=== PATIENT | female | born 1950 | race Caucasian/White ===

== ENCOUNTER 2018-05-30 12:48 | Emergency (ER) | payer OTHER ==
[2018-05-30 12:53] VITALS: BP 144/85; PULSE 85; TEMP 99.6; BMI 27.9
--- NOTE | 2018-05-30 13:27 | PDOC ---
History of Present Illness - General Chief Complaint: Respiratory Stated Complaint: CHEST PAIN Time Seen by Provider: 05/30/18 13:10 History Source: Patient Exam Limitations: No Limitations - History of Present Illness Initial Comments: 05/30/18 13:27 68 YOF with h/o NIDDM, prior HCV (tx with Harvoni with viral clearance at [facility]) , long-time smoker, hypothyroidism, and HTN who p/w dry cough for the past 2 days which has been worsening and associated with SOB, hot/cold flashes and chills, chest and head pressure, and lightheadedness. She tried 324 mg of ASA at home last night for the symptoms but this did not help. She did get a flu vaccination this year and denies any sick contacts. Never been sick like this before. Never had breathing problems or needed breathing treatments. She called her PCP Thuy Baird before coming in and he is aware she is here. Past History - Past Medical History Allergies/Adverse Reactions: Allergies Allergy/AdvReac Type Severity Reaction Status Date / Time No Known Allergies Allergy Verified 05/30/18 12:53 Home Medications: Ambulatory Orders Levothyroxine [Synthroid -] 125 mcg PO DAILY 10/30/11 Methadone [Dolophine -] 10 mg PO PRN PRN 10/30/11 Amlodipine Besylate/Benazepril [Lotrel 10-40 mg Capsule] 1 each PO DAILY Ascorbic Acid [Vitamin C] 250 mg PO DAILY 07/28/13 Cholecalciferol (Vitamin D3) [Vitamin D3] 400 unit PO DAILY 07/28/13 Clonazepam 1 mg PO PRN PRN 07/28/13 Esomeprazole Mag Trihydrate [Nexium] 40 mg PO DAILY 07/28/13 Glyburide 5 mg PO BID 07/28/13 Krill Oil/Eolia-3/Dha/Epa [Eolia-3 Krill Oil Softgel] 1 each PO DAILY 07/28/13 Vitamin E 400 unit PO DAILY 07/28/13 Polyethylene Glycol 3350 [Miralax 119 gm Btl -] 17 gm PO DAILY PRN #1 bottle Albuterol Sulfate Inhaler - [Ventolin HFA Inhaler -] 1 - 2 inh PO QID #1 inhaler 05/30/18 Oseltamivir Phosphate [Tamiflu] 75 mg PO BID #9 capsule 05/30/18 Anemia: No Asthma: No Cancer: No Cardiac Disorders: No CVA: No COPD: No CHF: No Dementia: No Diabetes: Yes (NIDDM) GI Disorders: Yes (GASTROPARESIS SYNDROME) Disorders: No HTN: Yes Hypercholesterolemia: No Liver Disease: Yes (HEP C, CHRONIC LIVER DISEASE) Seizures: No Thyroid Disease: Yes - Surgical History Abdominal Surgery: No Appendectomy: No Cardiac Surgery: No Cholecystectomy: No Lung Surgery: No Neurologic Surgery: No Orthopedic Surgery: No - Suicide/Smoking/Psychosocial Hx Smoking Status: No Smoking History: Never smoked Have you smoked in the past 12 months: Yes Number of Cigarettes Smoked Daily: 3 'Breaking Loose' booklet given: 07/29/13 Hx Alcohol Use: No Drug/Substance Use Hx: Yes (IN THE PAST) Substance Use Type: Alcohol, Opiates Hx Substance Use Treatment: No Review of Systems - Review of Systems Able to Perform ROS?: Yes Comments:: 05/30/18 13:36 GEN: subjective fever, chills, malaise, no generalized weakness, or weight change HEENT: no ear pain, sore throat, vision change, or eye pain CV: chest pain, lightheadedness, no palpitations, syncope, or edema RESP: cough, SOB, no wheezing GI: no abdominal pain, nausea, vomiting, diarrhea, constipation, or white/black/ bloody stool : no dysuria, hematuria, incontinence, retention, bleeding, or discharge MSK: no neck/back pain, muscle weakness/pain, or joint swelling/pain NEURO: headache, no seizure, vertigo, numbness, tingling, or focal weakness PSYCH: no substance use, no behavior change SKIN: no jaundice, no rash ROS otherwise negative except as noted in HPI *Physical Exam - Vital Signs Last Vital Signs Temp Pulse Resp BP Pulse Ox 99.6 F 85 18 144/85 98 05/30/18 12:51 05/30/18 12:51 05/30/18 12:51 05/30/18 12:51 05/30/18 12:51 - Physical Exam Comments: 05/30/18 13:42 GENERAL: a bit uncomfortable but nontoxic-appearing, A/Ox4, answers questions appropriately, a bit anxious HEENT: PERRLA, EOMI, moist mucous membranes, minimal posterior pharyngeal erythema without tonsillar swelling or exudates NECK/BACK: no midline ttp, no spinal stepoff or deformity, no hematoma, full ROM , neck supple CARDIOVASCULAR: regular rate/rhythm, normal S1S2, no MGR, strong peripheral pulses, capillary refill <2 seconds, extremities wwp, no edema LUNGS/RESPIRATORY: no respiratory distress, CTAB, no crackles/wheezes/rhonchi GI/ABDOMEN: symmetric [id number], normoactive BS, soft, no ttp, no midline pulsatile masses : no CVA tenderness EXTREMITIES: no muscle atrophy, no acute deformity, no edema SKIN: warm and dry, no pallor, no jaundice, no rash, no bruising, no skin breakdown, no cuts, no lesions NEUROLOGICAL: GCS 15, CN II-XII grossly intact, 5/5 strength proximally and distally, no facial droop, normal gait Moderate Sedation - Procedure Monitoring Vital Signs: Procedure Monitoring Vital Signs Temperature 99.6 F 05/30/18 12:51 Pulse Rate 85 05/30/18 12:51 Respiratory Rate 18 05/30/18 12:51 Blood Pressure 144/85 05/30/18 12:51 O2 Sat by Pulse Oximetry (%) 98 05/30/18 12:51 Heart Score/ECG Review - History History: Slightly suspicious - Electrocardiogram EKG: Normal - Age Age: >/= 65 - Risk Factors Risk Factors Heart Score: Yes Hx Hypertension, Yes Hx Diabetes, Yes Smoking History Based on the list above the patient has:: >/=3 risk factors or Hx atherosclerotic disease - Troponin Troponin: </= normal limit - Score Heart Score - Total: 4 #1 05/30/18 13:25 NSR, rate 75, leftward axis, isolated TWI in III, otherwise no ischemic ST-T changes ED Treatment Course - LABORATORY CBC & Chemistry Diagram: 05/30/18 13:34 05/30/18 13:34 Medical Decision Making - Medical Decision Making 05/30/18 13:33 Pt p/w SOB, cough, chest discomfort, and fever. Initial Vital Signs Temp Pulse Resp BP Pulse Ox 99.6 F 85 18 144/85 98 05/30/18 12:51 05/30/18 12:51 05/30/18 12:51 05/30/18 12:51 05/30/18 12:51 Exam: As noted in Physical Exam section. DDX IBNLT: Most likely URI, influenza, PNA, bronchitis, or COPD; less likely ACS , asthma, CHF, other lung disease, laryngitis, tracheitis, sinus infection, etc. W/U ordered: CXR EKG CBCD CMP Troponin TX ordered: Reglan, Benadryl, IVF EKG: Reviewed; results as noted in ECG Review section. Laboratory Tests 05/30/18 05/30/18 05/30/18 13:30 13:34 13:34 WBC 4.0 RBC 3.79 Hgb 12.5 Hct 35.6 MCV 93.8 MCH 32.9 MCHC 35.1 RDW 13.7 Plt Count 102 L D MPV 9.1 Absolute Neuts (auto) 3.2 Neutrophils % 80.6 D Lymphocytes % 5.6 L D Monocytes % 13.3 H Eosinophils % 0.0 D Basophils % 0.5 Nucleated RBC % 0 Sodium 137 Potassium 3.7 Chloride 100 Carbon Dioxide 31 Anion Gap 7 L BUN 11 Creatinine 0.7 Creat Clearance w eGFR > 60 Random Glucose 130 H Calcium 8.6 Total Bilirubin 0.4 AST 24 ALT 26 Alkaline Phosphatase 80 Troponin I < 0.02 Total Protein 7.3 Albumin 3.5 Influenza A (Rapid) Positive A Influenza B (Rapid) Negative HEART score is 4, but the patient's clinical picture is much more consistent with URI. She has had this chest pressure for more than 24 hours and troponin is negative. She states the pain is worse with coughing. Reassessment: Patient states feeling improved. CXR: nothing acute DISCHARGE Patient is influenza positive and within Tamiflu tx window. First dose given here in the ED and E-Rx sent to her pharmacy for remaining course. E-Rx also sent for Albuterol MDI as patient is long-time smoker, likely COPD, got relief in ED with DuoNeb. The Pt has gotten significant relief of symptoms while in the ED. They are appropriate for discharge with close outpatient follow up. The Pt is comfortable with this plan and will follow up with their primary care provider in 1-3 days. Specific return precautions are discussed and they will come back to the ER if necessary. *DC/Admit/Observation/Transfer Diagnosis at time of Disposition: Influenza A - Discharge Dispostion Disposition: HOME Condition at time of disposition: Stable Decision to Admit order: No - Prescriptions Prescriptions: Albuterol Sulfate Inhaler - [Ventolin HFA Inhaler -] 1 - 2 inh PO QID #1 inhaler Oseltamivir Phosphate [Tamiflu] 75 mg PO BID #9 capsule - Referrals Referrals: Thuy Baird MD [Primary Care Provider] - - Patient Instructions Printed Discharge Instructions: DI for Influenza -- Adult Additional Instructions: You were seen in the ER for influenza. Your blood laboratories, electrocardiogram, and chest x-ray do not look concerning otherwise. We gave you a breathing treatment and medications including your first dose of TamiFlu ( the antiviral medicine). Please picker and take the remaining TamiFlu course from your pharmacy. Also picker the albuterol inhaler we are sending to your pharmacy because this should help with the tightness in breathing. After our assessment, we do not believe you are having a medical emergency at this time, and we believe you are safe to go home. Please picker your prescription for antibiotics from your pharmacy and take them as prescribed. Please follow up with your primary care provider in 1-3 days. Call their clinic as soon as possible, tell them you were seen in the ER for bronchitis, and tell them you need an appointment. If you have any new or worsening symptoms, please come back to the ER at any time (24 hours a day), especially for inability to breathe , worsening chest pain, fainting, or other symptoms you cannot control with over -the-counter medications and your antibiotic. If you are having severe or life threatening symptoms, or symptoms that make it unsafe to drive or have someone drive you, please call 911. - Post Discharge Activity
[2018-05-30] MEDS ORDERED: ALBUTEROL SO4 2.5/IPRATROPIUM 0.5 INH SOL 3 ML VIAL.NEB. NEB ONE ×2 (13:31→13:41)
--- NOTE | 2018-05-30 13:38 | PDOC ---
Attending Attestation - HPI HPI: 05/30/18 13:38 The patient is a 68 year old female with a significant PMH of arthritis, HCV, HTN, hypothyroidism, and IDDM presenting with subjective fevers, pressure-like headache, dry cough, and chest tightness for the past two days. Patient states that last night the dry cough worsened and she noticed her chest becoming tighter and making it difficult for her to take a deep breath. Patient took aspirin with no relief of her symptoms. Patient called her PCP, Dr. Baird, this morning and told her to come to the ER for further evaluation. Denies positive sick contact or recent travel. Patient had her flu shot this year. Denies any cardiac or pulmonary conditions. The patient denies leg swelling, dizziness, chills, nausea, vomit, diarrhea and constipation. Denies dysuria, frequency, urgency and hematuria. Allergies: NKA; unable to take tylenol 2/2 HCV Past surgical history: None reported. Social history: No reported alcohol or drug use. Current everyday smoker; currently smokes 1-2 cigarettes daily. PCP: Dr. Baird - Physicial Exam PE: 05/30/18 13:39 ADULT EXAM GENERAL: Awake, alert, and fully oriented, in no acute distress NECK: Normal ROM, supple, no lymphadenopathy, JVD, or masses LUNGS: (+) Moderately tight breathing, but no wheezing, crackles or rhonchi. HEART: Regular rate and rhythm, normal S1 and S2, no murmurs, rubs or gallops ABDOMEN: Soft, nontender, normoactive bowel sounds. No guarding, no rebound. No masses EXTREMITIES: Normal range of motion, no edema. No clubbing or cyanosis. No cords, erythema, or tenderness NEUROLOGICAL: Cranial nerves II through XII grossly intact. Normal speech, normal gait SKIN: Warm, Dry, normal turgor, no rashes or lesions noted. <Sintia Madrid - Last Filed: 05/30/18 13:38> - Resident Resident Name: Mylene Campos - ED Attending Attestation I have performed the following: I have examined & evaluated the patient, The case was reviewed & discussed with the resident, I agree w/resident's findings & plan, Exceptions are as noted - Medical Decision Making 05/30/18 13:36 A portion of this note was documented by scribe services under my direction. I have reviewed the details of the note, within reason, and agree with the documentation with the following case summary and management plan written by me. Patient treated in the ED. Nursing notes are reviewed and incorporated into the medical decision-making. Vital signs reviewed. Peripheral IV access obtained by the nurse, laboratory studies are drawn and sent, reviewed and interpreted by myself. Vital Signs Temp Pulse Resp BP Pulse Ox 99.6 F 85 18 144/85 98 05/30/18 12:51 05/30/18 12:51 05/30/18 12:51 05/30/18 12:51 05/30/18 12:51 68-year-old female with history of hepatitis C status post treatment, hypertension, diabetes, thyroid disorder presents with nonproductive coughing, tactile fevers, frontal pressure sinus-like headaches, chest tightness and shortness of breath for 2 days. Patient denies sick contacts or recent travels. She reports that she feels like she developed an upper respiratory infection. She states that she become increasingly tight breathing. Reports smoking history of 2 to 3 cigarettes per day for many years. Denies any prior cardiac or pulmonary history. Came to the ER because of worsening symptoms. I suspect the patient may potentially have underlying emphysema. However, we'll need to rule out bronchitis and pneumonia. We will trial one DuoNeb. I suspect patient likely has a viral upper respiratory infection as well. We'll swab influenza. Chest x-ray, labs and reassess. I feel less likely to be cardiac in origin. 05/30/18 14:25 CBC, BMP 05/30/18 13:34 05/30/18 13:34 CMP Sodium 137 mmol/L (136-145) 05/30/18 13:34 Potassium 3.7 mmol/L (3.5-5.1) 05/30/18 13:34 Chloride 100 mmol/L (98-107) 05/30/18 13:34 Carbon Dioxide 31 mmol/L (21-32) 05/30/18 13:34 Anion Gap 7 MMOL/L (8-16) L 05/30/18 13:34 BUN 11 mg/dL (7-18) 05/30/18 13:34 Creatinine 0.7 mg/dL (0.55-1.3) 05/30/18 13:34 Creat Clearance w eGFR > 60 (>60) 05/30/18 13:34 Random Glucose 130 mg/dL (74-106) H 05/30/18 13:34 Calcium 8.6 mg/dL (8.5-10.1) 05/30/18 13:34 Total Bilirubin 0.4 mg/dL (0.2-1) 05/30/18 13:34 AST 24 U/L (15-37) 05/30/18 13:34 ALT 26 U/L (13-61) 05/30/18 13:34 Alkaline Phosphatase 80 U/L (45-117) 05/30/18 13:34 Troponin I < 0.02 ng/ml (0.00-0.05) 05/30/18 13:34 Total Protein 7.3 g/dl (6.4-8.2) 05/30/18 13:34 Albumin 3.5 g/dl (3.4-5.0) 05/30/18 13:34 Chest xray reviewed, No infiltrates. Influenza positive A. Will initiate tamiflu. Will prescribe albuterol pump. Pt breathing comfortably. Pt case discussed with Dr. Baird. Dr. Baird also evaluated patient. Will d/c patient home with supportive care. <Antelmo Portillo - Last Filed: 05/30/18 14:35> Heart Score/ECG Review #1 ECG reviewed & interpreted by me at: 13:25 05/30/18 13:39 NSR 74, left axis deviation, TWI III, no std/koffi, T wave flat V2, QTC 417 msec <Antelmo Portillo - Last Filed: 05/30/18 14:35>
[2018-05-30 13:47] LABS: BASO % 0.5 % (0-2.0); HEMATOCRIT 35.6 % (32.4-45.2); HEMOGLOBIN 12.5 GM/dL (10.7-15.3); LYMPH % 5.6 % (8-40); MCH 32.9 pg (25.7-33.7); MCHC 35.1 g/dl (32.0-36.0); MEAN CELL VOLUME 93.8 fl (80-96); MEAN PLT VOLUME 9.1 fl (7.5-11.1); MONO % 13.3 % (3.8-10.2); NEUT % 80.6 % (42.8-82.8); PLATELET COUNT 102 K/MM3 (134-434); RBC 3.79 M/mm3 (3.60-5.2); RDW 13.7 % (11.6-15.6)
[2018-05-30 14:13] LABS: ALBUMIN 3.5 g/dl (3.4-5.0); ALK PHOS 80 U/L (45-117); ANION GAP 7 MMOL/L (8-16); BILIRUBIN,TOTAL 0.4 mg/dL (0.2-1); BLOOD UREA NITROGEN 11 mg/dL (7-18); CALCIUM 8.6 mg/dL (8.5-10.1); CHLORIDE 100 mmol/L (98-107); CO2 31 mmol/L (21-32); CREATININE 0.7 mg/dL (0.55-1.3); GLUCOSE,RANDOM 130 mg/dL (74-106); POTASSIUM 3.7 mmol/L (3.5-5.1); SGOT/AST 24 U/L (15-37); SGPT/ALT 26 U/L (13-61); SODIUM 137 mmol/L (136-145); TOT PROT 7.3 g/dl (6.4-8.2)
[2018-05-30] MEDS ORDERED: OSELTAMIVIR PHOSPHATE 75 MG CAPSULE PO ONE (14:24)
[2018-05-30] MEDS ORDERED: OSELTAMIVIR PHOSPHATE 75 MG CAPSULE ONE (14:29)
[2018-05-30] MEDS ORDERED: diphenhydrAMINE HCL 25 MG CAPSULE (FP) PO ONE ×2 (14:33→14:35)
[2018-05-30] MEDS ORDERED: METOCLOPRAMIDE HCL 10 MG TABLET (FP) PO ONE ×2 (14:33→14:35)
--- NOTE | 2018-05-30 22:27 | EKG ---
Test Reason : Blood Pressure : / mmHG Vent. Rate : 074 BPM Atrial Rate : 074 BPM P-R Int : 162 ms QRS Dur : 094 ms QT Int : 376 ms P-R-T Axes : 038 -35 009 degrees QTc Int : 417 ms NORMAL SINUS RHYTHM LEFT AXIS DEVIATION ABNORMAL ECG WHEN COMPARED WITH ECG OF 07-JUN-2009 09:19, NO SIGNIFICANT CHANGE WAS FOUND Confirmed by APPLE HOLLIS MD ([id number]) on 05/30/2018 10:27:06 PM Referred By: Confirmed By:APPLE HOLLIS MD
== END 2018-05-30 14:38 | disposition home or self-care (01) ==
LOC: JER 12:48
PROC: 3E0F7GC Introduction of Other Therapeutic Substance into Respiratory Tract, Via Natural or Artificial Opening (ICD-10-PCS; principal; 2018-05-30)
DX: J09.X2 Influenza due to identified novel influenza A virus with other respiratory manifestations (principal); I10 Essential (primary) hypertension; E11.9 Type 2 diabetes mellitus without complications; Z79.84 Long term (current) use of oral hypoglycemic drugs; E03.9 Hypothyroidism, unspecified; K31.84 Gastroparesis; F17.210 Nicotine dependence, cigarettes, uncomplicated
CPT/HCPCS: 36415; 71046-TC-FY; 80053; 84484; 85025; 87804; 93005; 93010; 94640; 99282-25

== ENCOUNTER → 2020-04-19 | Day surgery (SDC) | payer OTHER | END | disposition home or self-care (01) | LOC: FRADUS 09:24 → FMAMMOTONE 09:24 → EDSTATUS 10:00 | PROVIDERS: ATTEND Surgery Surgical Oncology | PROC: 0H9T3ZX Drainage of Right Breast, Percutaneous Approach, Diagnostic (ICD-10-PCS; principal; 2020-04-19) | DX: C50.911 Malignant neoplasm of unspecified site of right female breast (principal) | CPT/HCPCS: 19081; 76098-TC-FY; 76641-TC-50; 87899; 88305-TC; 88341-TC; 88342-TC; A4648 ==

== ENCOUNTER 2020-11-15 15:59 | Inpatient (IN) | payer OTHER ==
[2020-11-15] MEDS ORDERED: LIDOCAINE 5% TOPICAL PATCH TP ONE (18:19)
[2020-11-15] MEDS ORDERED: KETOROLAC TROMETHAMINE 15 MG/ML VIAL IVPUSH ONE (18:19)
[2020-11-15] MEDS ORDERED: KETOROLAC TROMETHAMINE 15 MG/ML VIAL ONE (18:25)
[2020-11-15] MEDS ORDERED: LIDOCAINE 5% TOPICAL PATCH ONE (18:26)
[2020-11-15 18:35] LABS: BASO % 0.7 % (0-2.0); EOS % 1.6 % (0-4.5); HEMATOCRIT 33.6 % (32.4-45.2); HEMOGLOBIN 11.6 GM/dL (10.7-15.3); LYMPH % 17.2 % (8-40); MCH 32.5 pg (25.7-33.7); MCHC 34.5 g/dl (32.0-36.0); MEAN CELL VOLUME 94.1 fl (80-96); MEAN PLT VOLUME 9.3 fl (7.5-11.1); MONO % 10.2 % (3.8-10.2); NEUT % 70.3 % (42.8-82.8); PLATELET COUNT 131 10^3/uL (134-434); RBC 3.57 M/mm3 (3.60-5.2); RDW 14.5 % (11.6-15.6); WHITE BLOOD COUNT 6.4 K/mm3 (4.0-10.0)
[2020-11-15 18:55] LABS: CALCIUM 9.1 mg/dL (8.5-10.1)
[2020-11-15 18:56] LABS: ALBUMIN 3.8 g/dl (3.4-5.0)
[2020-11-15 18:59] LABS: CREATININE 1.2 mg/dL (0.55-1.3)
[2020-11-15 19:00] LABS: BILIRUBIN,TOTAL 0.4 mg/dL (0.2-1)
[2020-11-15 19:01] LABS: TOT PROT 7.3 g/dl (6.4-8.2)
[2020-11-15] MEDS ORDERED: LACTATED RINGERS SOLUTION 1000 ML INFUS.BAG IV ONE ×2 (19:34)
[2020-11-15] MEDS ORDERED: LIDOCAINE PATCH REMOVAL MC ONE (22:00)
[2020-11-15 22:22] LABS: URINE APPEARANCE Clear; URINE BILIRUBIN Negative (NEGATIVE); URINE COLOR Yellow; URINE GLUCOSE (UA) Negative (NEGATIVE); URINE KETONE Negative (NEGATIVE); URINE LEUK ESTERASE Negative (NEGATIVE); URINE NITRITE Negative (NEGATIVE); URINE PROTEIN Negative (NEGATIVE); URINE UROBILINOGEN 0.2 mg/dL (0.2-1.0)
[2020-11-16 01:33] VITALS: BMI 26.6
[2020-11-16] MEDS ORDERED: HEPARIN NA (PORCINE) 5,000 UNITS/ML 1ML VIAL SQ SCH (06:00)
[2020-11-16 07:32] LABS: BASO % 0.8 % (0-2.0); EOS % 4.3 % (0-4.5); HEMATOCRIT 35.1 % (32.4-45.2); LYMPH % 28.8 % (8-40); MCH 32.3 pg (25.7-33.7); MCHC 34.3 g/dl (32.0-36.0); MEAN CELL VOLUME 94.4 fl (80-96); MEAN PLT VOLUME 8.6 fl (7.5-11.1); MONO % 11.1 % (3.8-10.2); PLATELET COUNT 121 10^3/uL (134-434); RBC 3.72 M/mm3 (3.60-5.2); RDW 14.4 % (11.6-15.6); WHITE BLOOD COUNT 6.3 K/mm3 (4.0-10.0)
[2020-11-16 07:36] LABS: INR 0.98 (0.83-1.09); PROTHROMBIN TIME (PATIENT) 12.1 SEC (9.7-13.0)
[2020-11-16] MEDS: INSULIN SLIDING SCALE (NOVOLOG) 1 VIAL SQ SCH ×2 (07:38→11:26)
[2020-11-16 07:39] LABS: ACTIVATED PTT 18.5 SECONDS (25.2-36.5)
[2020-11-16 07:50] LABS: CALCIUM 9.4 mg/dL (8.5-10.1)
[2020-11-16 07:51] LABS: ALBUMIN 3.8 g/dl (3.4-5.0); BLOOD UREA NITROGEN 16.2 mg/dL (7-18)
[2020-11-16 07:54] LABS: CREATININE 0.7 mg/dL (0.55-1.3)
[2020-11-16 07:55] LABS: BILIRUBIN,TOTAL 0.9 mg/dL (0.2-1)
[2020-11-16 07:56] LABS: TOT PROT 7.2 g/dl (6.4-8.2)
[2020-11-16] MEDS ORDERED: KETOROLAC TROMETHAMINE 15 MG/ML VIAL IM PRN (09:35)
[2020-11-16] MEDS ORDERED: POLYETHYLENE GLYCOL (HEALTHYLAX) 3350 17 GM PACKET PO PRN (09:40)
[2020-11-16] MEDS ORDERED: PATIENT'S OWN MEDICATION (NON-FORMULARY) (Clonazepam [Clonazepam] 1 MG Tablet) PO PRN (09:40)
[2020-11-16] MEDS ORDERED: DHA PO SCH (10:00)
[2020-11-16] MEDS ORDERED: LISINOPRIL 20 MG TABLET PO SCH (10:00)
[2020-11-16] MEDS ORDERED: OMEGA PO SCH (10:00)
[2020-11-16] MEDS ORDERED: CHOLECALCIFEROL (VIT D3) 400 UNIT (10 MCG) TABLET PO SCH (10:00)
[2020-11-16] MEDS ORDERED: [UNRECOGNIZED DRUG - OTHER] PO SCH (10:00)
[2020-11-16] MEDS ORDERED: VITAMIN E 400 INTERNATIONAL-UNITS CAPSULE (FP) PO SCH (10:00)
[2020-11-16] MEDS ORDERED: EPA PO SCH (10:00)
[2020-11-16] MEDS ORDERED: KRILL OIL PO SCH (10:00)
[2020-11-16] MEDS ORDERED: PANTOPRAZOLE 40 MG TABLET PO SCH (10:00)
[2020-11-16] MEDS ORDERED: ASCORBIC ACID 250 MG TABLET (FP) PO SCH (10:00)
[2020-11-16] MEDS ORDERED: LEVOTHYROXINE NA 125 MCG TABLET (FP) PO SCH (10:00)
[2020-11-16] MEDS ORDERED: amLODIPine BESYLATE 10 MG TABLET (FP) PO SCH (10:00)
[2020-11-16] MEDS ORDERED: PT OWN MED DRAWER 7, Y5N ONE (10:09)
[2020-11-16] MEDS ORDERED: ALBUTEROL SO4 HFA INHALER IH SCH ×2 (12:00)
[2020-11-16 14:09] VITALS: BP 104/53; PULSE 59; TEMP 98.7
[2020-11-16] MEDS ORDERED: OSELTAMIVIR PHOSPHATE 75 MG CAPSULE PO SCH ×3 (22:00)
[2020-11-17] MEDS ORDERED: methaDONE HCL 10 MG TABLET PO SCH (10:00)
== END 2020-11-16 14:47 | disposition home or self-care (01) | DRG 558 ==
LOC: JER 15:59 → JERBED 20:33 → J6S 23:51
PROVIDERS: ADMIT Internal Medicine; ATTEND Internal Medicine
DX: M62.82 Rhabdomyolysis (principal); I10 Essential (primary) hypertension; E03.9 Hypothyroidism, unspecified; E11.9 Type 2 diabetes mellitus without complications; G51.0 Bell's palsy; E11.43 Type 2 diabetes mellitus with diabetic autonomic (poly)neuropathy; K31.84 Gastroparesis; M48.061 Spinal stenosis, lumbar region without neurogenic claudication; Z85.3 Personal history of malignant neoplasm of breast
CPT/HCPCS: 36415; 70450-TC; 71046-TC-FY; 72125-TC; 72131-TC; 73110-TC-LT-FY; 73130-TC-LT-FY; 73562-TC-LT-FY; 73562-TC-RT-FY; 80053; 81003; 82550; 82553; 82962; 84443; 84484; 85025; 85610; 85651; 85730; 86140; 87086; 93005; 93010; 99285-25; C9803; G0378; J1644; U0003; U0005

== ENCOUNTER 2020-11-16 15:24 | Emergency (ER) | payer OTHER ==
[2020-11-16 15:58] VITALS: BP 107/78; PULSE 86; TEMP 98.1; BMI 36.3
[2020-11-16] MEDS ORDERED: SODIUM CHLORIDE 0.9% 500 ML INFUS.BAG IV ONE (16:43)
[2020-11-16 17:46] LABS: CHLORIDE 103 mmol/L (98-107); SODIUM 138 mmol/L (136-145)
[2020-11-16 17:48] LABS: CALCIUM 8.8 mg/dL (8.5-10.1)
[2020-11-16 17:49] LABS: ANION GAP 10 MMOL/L (8-16); BLOOD UREA NITROGEN 15.8 mg/dL (7-18); CO2 25 mmol/L (21-32); GLUCOSE,RANDOM 189 mg/dL (74-106)
[2020-11-16 17:52] LABS: CREATININE 0.8 mg/dL (0.55-1.3); PHOSPHOROUS 3.9 mg/dL (2.5-4.9); SGOT/AST 141 U/L (15-37); SGPT/ALT 65 U/L (13-61)
[2020-11-16 17:53] LABS: BILIRUBIN,TOTAL 0.4 mg/dL (0.2-1); TOT PROT 7.6 g/dl (6.4-8.2)
[2020-11-16 17:55] LABS: ALK PHOS 80 U/L (45-117)
== END 2020-11-16 18:27 | disposition left against medical advice (07) ==
LOC: JER 15:24
DX: R55 Syncope and collapse (principal)
CPT/HCPCS: 80053; 82550; 82553; 83735; 84100; 84443; 84484; 93005; 93010; 99285-25

== ENCOUNTER 2023-04-23 04:21 | Day surgery (SDC) | payer OTHER ==
[2023-04-21 14:03] VITALS: BMI 22.9
[2023-04-23 09:10] VITALS: TEMP 97.8
[2023-04-23 09:41] VITALS: BP 148/68; PULSE 68; RESP 13
[2023-04-23 10:33] LABS: BASO % 0.7 % (0-2.0); HEMATOCRIT 29.1 % (32.4-45.2); HEMOGLOBIN 9.8 GM/dL (10.7-15.3); LYMPH % 17.5 % (8-40); MCH 32.4 pg (25.7-33.7); MCHC 33.7 g/dl (32.0-36.0); MEAN CELL VOLUME 96.1 fl (80-96); MEAN PLT VOLUME 8.2 fl (7.5-11.1); MONO % 5.6 % (3.8-10.2); NEUT % 73.2 % (42.8-82.8); PLATELET COUNT 115 10^3/uL (134-434); RBC 3.03 M/mm3 (3.60-5.2); RDW 13.5 % (11.6-15.6); WHITE BLOOD COUNT 3.9 K/mm3 (4.0-10.0)
[2023-04-23 10:39] LABS: INR 1.24 (0.83-1.09); PROTHROMBIN TIME (PATIENT) 14.4 SEC (9.7-13.0)
[2023-04-23 10:50] LABS: POTASSIUM 3.7 mmol/L (3.5-5.1)
[2023-04-23 10:51] LABS: CALCIUM 9.4 mg/dL (8.5-10.1)
[2023-04-23 10:53] LABS: ALBUMIN 3.1 g/dl (3.4-5.0); BLOOD UREA NITROGEN 7.2 mg/dL (7-18)
[2023-04-23 10:55] LABS: CREATININE 0.5 mg/dL (0.55-1.3)
[2023-04-23 10:57] LABS: BILIRUBIN,TOTAL 0.4 mg/dL (0.2-1); TOT PROT 6.1 g/dl (6.4-8.2)
== END 2023-04-23 10:14 | disposition home or self-care (01) ==
LOC: JASU-ENDO 04:21
PROVIDERS: ATTEND Internal Medicine Gastroenterology
PROC: 0DBH8ZX Excision of Cecum, Via Natural or Artificial Opening Endoscopic, Diagnostic (ICD-10-PCS; principal; 2023-04-23 08:00)
DX: Z12.11 Encounter for screening for malignant neoplasm of colon (principal); Z86.010 Personal history of colon polyps; K63.89 Other specified diseases of intestine; K64.8 Other hemorrhoids; D12.0 Benign neoplasm of cecum
CPT/HCPCS: 36415; 80053; 82962; 85025; 85610; 86704; 87340; 87517; 87522; 88305-TC

== ENCOUNTER 2023-08-21 22:56 | Observation (INO) | payer OTHER ==
[2023-08-21 23:03] VITALS: BMI 24.8
[2023-08-22 02:14] LABS: BASO % 0.9 % (0-2.0); EOS % 5.2 % (0-4.5); HEMATOCRIT 33.7 % (32.4-45.2); HEMOGLOBIN 11.2 GM/dL (10.7-15.3); LYMPH % 24.2 % (8-40); MCH 32.1 pg (25.7-33.7); MCHC 33.4 g/dl (32.0-36.0); MEAN CELL VOLUME 96.1 fl (80-96); MEAN PLT VOLUME 8.6 fl (7.5-11.1); MONO % 9.6 % (3.8-10.2); NEUT % 60.1 % (42.8-82.8); PLATELET COUNT 134 10^3/uL (134-434); WHITE BLOOD COUNT 5.8 K/mm3 (4.0-10.0)
[2023-08-22 02:23] LABS: INR 1.09 (0.83-1.09); PROTHROMBIN TIME (PATIENT) 12.6 SEC (9.7-13.0)
[2023-08-22 02:25] LABS: ACTIVATED PTT 42.5 SECONDS (25.2-36.5)
[2023-08-22 02:32] LABS: VENOUS BASE EXCESS 1.3 mmol/L (-2-2); VENOUS O2 SATURATION 72.6 % (70-80); VENOUS PCO2 49.2 mmHg (38-52); VENOUS PH 7.361 (7.310-7.410)
[2023-08-22 02:37] LABS: POTASSIUM 4.2 mmol/L (3.5-5.1)
[2023-08-22 02:39] LABS: ALBUMIN 3.8 g/dl (3.4-5.0); CALCIUM 9.3 mg/dL (8.5-10.1)
[2023-08-22 02:42] LABS: CREATININE 0.6 mg/dL (0.55-1.3)
[2023-08-22 02:44] LABS: BILIRUBIN,TOTAL 0.5 mg/dL (0.2-1); TOT PROT 7.3 g/dl (6.4-8.2)
[2023-08-22] MEDS ORDERED: FUROSEMIDE 40 MG/4 ML INJECTABLE VIAL ONE (06:29)
[2023-08-22] MEDS: FUROSEMIDE 40 MG/4 ML INJECTABLE VIAL IVPUSH ONE ×2 (06:33)
[2023-08-22] MEDS ORDERED: ACETAMINOPHEN 325 MG TABLET (FP) PO PRN (09:50)
[2023-08-22] MEDS: HEPARIN NA (PORCINE) 5,000 UNITS/ML 1ML VIAL SQ SCH (10:18)
[2023-08-22] MEDS ORDERED: HEPARIN NA (PORCINE) 5,000 UNITS/ML 1ML VIAL ONE (10:26)
[2023-08-22] MEDS: LISINOPRIL 20 MG TABLET PO SCH (11:28)
[2023-08-22] MEDS: LEVOTHYROXINE NA 125 MCG TABLET (FP) PO SCH (11:28)
[2023-08-22] MEDS: amLODIPine BESYLATE 10 MG TABLET (FP) PO SCH (11:28)
[2023-08-22] MEDS: ANASTROZOLE 1 MG TABLET PO SCH (14:17)
[2023-08-22] MEDS: NAPROXEN 500 MG TABLET PO PRN (14:17)
[2023-08-22] MEDS: INSULIN ASPART SLIDING SCALE (NOVOLOG) 1 VIAL SQ SCH (16:40)
[2023-08-22] MEDS ORDERED: ATORVASTATIN CA 20 MG TABLET (FP) ONE (21:10)
[2023-08-22] MEDS: ATORVASTATIN CA 40 MG TABLET (FP) PO SCH (21:11)
[2023-08-23 06:42] LABS: BASO % 1.1 % (0-2.0); EOS % 5.2 % (0-4.5); HEMATOCRIT 33.4 % (32.4-45.2); HEMOGLOBIN 11.2 GM/dL (10.7-15.3); MCHC 33.7 g/dl (32.0-36.0); MEAN CELL VOLUME 95.1 fl (80-96); MEAN PLT VOLUME 9.1 fl (7.5-11.1); MONO % 9.2 % (3.8-10.2); NEUT % 60.5 % (42.8-82.8); PLATELET COUNT 132 10^3/uL (134-434); RBC 3.51 M/mm3 (3.60-5.2); RDW 13.6 % (11.6-15.6); WHITE BLOOD COUNT 4.8 K/mm3 (4.0-10.0)
[2023-08-23 07:01] LABS: POTASSIUM 3.9 mmol/L (3.5-5.1)
[2023-08-23 07:03] LABS: ALBUMIN 3.6 g/dl (3.4-5.0)
[2023-08-23 07:04] LABS: BLOOD UREA NITROGEN 16.1 mg/dL (7-18)
[2023-08-23 07:06] LABS: CREATININE 0.7 mg/dL (0.55-1.3)
[2023-08-23 07:08] LABS: BILIRUBIN,TOTAL 0.6 mg/dL (0.2-1); TOT PROT 6.7 g/dl (6.4-8.2)
[2023-08-23 07:12] LABS: CHOLESTEROL 129 mg/dL (50-200)
[2023-08-23 07:14] LABS: LDL CHOLESTEROL (ONLY SJRH) 68 mg/dL (5-100)
[2023-08-23 07:15] LABS: HDL CHOLESTEROL 59 mg/dL (40-60)
[2023-08-23] MEDS: FUROSEMIDE 40 MG/4 ML INJECTABLE VIAL IVPUSH SCH (09:24)
[2023-08-25 15:20] VITALS: BP 118/78; PULSE 65; RESP 20; TEMP 97.9
== END 2023-08-25 18:12 | disposition home or self-care (01) ==
LOC: JER 22:56 → JERBED 08-22 07:10 → J4W 08-22 11:07 → UNDODISOB 08-24 06:00
PROVIDERS: ADMIT Internal Medicine; ATTEND Internal Medicine
PROC: 3E033GC Introduction of Other Therapeutic Substance into Peripheral Vein, Percutaneous Approach (ICD-10-PCS; principal; 2023-08-22)
DX: I50.9 Heart failure, unspecified (principal); I11.0 Hypertensive heart disease with heart failure; Z72.0 Tobacco use; F41.9 Anxiety disorder, unspecified; M79.602 Pain in left arm; M54.9 Dorsalgia, unspecified; R10.9 Unspecified abdominal pain; R60.0 Localized edema; E03.9 Hypothyroidism, unspecified; E11.9 Type 2 diabetes mellitus without complications; M62.82 Rhabdomyolysis; Z85.3 Personal history of malignant neoplasm of breast
CPT/HCPCS: 36415; 71275-TC; 78452-TC; 80053; 80061; 82803; 82962; 83036; 83880; 84443; 84484; 85025; 85610; 85730; 86850; 86900; 86901; 93005; 93010; 93017; 93306-TC; 93970-TC; 96374; 96376; 99285-25; A9502; G0378; J1644; Q9967